=== PATIENT | female | born 1955 | race Asian ===

== ENCOUNTER 2016-10-24 15:15 | Emergency (ER) | payer MEDICAID, OTHER ==
[~2016-10-24] VITALS: Ht 162.6 cm; Wt 68.0 kg
[~2016-10-24 15:15] MED LIST: ASPI-1093 PO; BENZ1TAB10 PO; ENAL5TAB PO; FERR-89 PO; FURO10SO PO; GEMF600T3 PO; GLYB5 PO; INSLAN; LORA-703 PO; METF500T7 PO; MULT1CAP32 PO; PARO10TA89 PO; PIOG15TA13 PO; RANI150T7 PO; RISP3TAB44 PO
[2016-10-24] MEDS ORDERED: SOLI5 PO (16:47)
[2016-10-24] MEDS ORDERED: INSLAN SQ (16:47)
[2016-10-24] MEDS ORDERED: SITA100 PO (16:47)
[2016-10-24] MEDS ORDERED: BECL8.7A6 PUFF (16:47)
[2016-10-24] MEDS ORDERED: ATOR10TA84 PO (16:47)
[2016-10-24] MEDS ORDERED: FLUT220HFA IH (16:47)
[2016-10-24 16:52] LABS: GLUCOSE,POINT OF CARE 215 MG/DL (70-110)
[2016-10-24] MEDS ORDERED: IBUPROFEN 400 MG TABLET PO ONE (18:15)
[2016-10-24 19:21] VITALS: BP 124/77
== END 2016-10-24 19:31 | disposition home or self-care (01) ==
LOC: EMS 15:16
DX: S82.831A Other fracture of upper and lower end of right fibula, initial encounter for closed fracture (principal); E11.9 Type 2 diabetes mellitus without complications; I10 Essential (primary) hypertension; E78.00 Pure hypercholesterolemia, unspecified; K21.9 Gastro-esophageal reflux disease without esophagitis; J45.909 Unspecified asthma, uncomplicated; Z79.4 Long term (current) use of insulin; W10.1XXA Fall (on)(from) sidewalk curb, initial encounter; Y93.89 Activity, other specified; Y92.89 Other specified places as the place of occurrence of the external cause; Y99.8 Other external cause status
CPT/HCPCS: 29515; 82962; 99284

== ENCOUNTER → 2016-12-22 | Outpatient (CLI) | payer OTHER, MEDICAID ==
[~2016-12-22] MED LIST changes: +ATOR10TA84 PO; +BECL8.7A6 PUFF; +FLUT220HFA IH; -FURO10SO PO; -GEMF600T3 PO; -GLYB5 PO; -INSLAN; +INSLAN SQ; +SITA100 PO; +SOLI5 PO
== END | disposition home or self-care (01) ==
LOC: RADPV 14:15
PROVIDERS: ATTEND Physician Assistant
DX: S82.61XD Displaced fracture of lateral malleolus of right fibula, subsequent encounter for closed fracture with routine healing (principal); X58.XXXD Exposure to other specified factors, subsequent encounter

== ENCOUNTER 2017-05-22 08:44 | Inpatient (IN) | payer MEDICAID ==
[~2017-05-22] VITALS: Ht 167.6 cm; Wt 70.3 kg
[2017-05-22] VITALS (14 sets, daily range): BP systolic 153–199; BP diastolic 71–100
[~2017-05-22 08:44] MED LIST changes: +AMLO-512 PO; -ASPI-1093 PO; +ASPI-1188 PO; -BENZ1TAB10 PO; +CEPH500 PO; -ENAL5TAB PO; -FERR-89 PO; -FLUT220HFA IH; -LORA-703 PO; -METF500T7 PO; +METR500 PO; +OS500 PO; -PIOG15TA13 PO; -RANI150T7 PO; -RISP3TAB44 PO; -SITA100 PO; -SOLI5 PO
[2017-05-22] MEDS ORDERED: SITA100 PO (08:53)
[2017-05-22] MEDS ORDERED: ENAL5 PO (08:53)
[2017-05-22] MEDS ORDERED: FERR-89 PO (08:53)
[2017-05-22] MEDS ORDERED: RANI150T7 PO (08:53)
[2017-05-22] MEDS ORDERED: BENZ1TAB10 PO (08:53)
[2017-05-22] MEDS ORDERED: FURO20 PO (08:53)
[2017-05-22] MEDS ORDERED: RISP2 PO (08:53)
[2017-05-22] MEDS ORDERED: LORA10TA7 PO (08:53)
[2017-05-22] MEDS ORDERED: SODIUM CHLORIDE 0.9% 100 ML ONE (08:55)
[2017-05-22] MEDS ORDERED: IOVERSOL 350 MG/ML 100 ML VIAL ONE (08:55)
[2017-05-22] MEDS ORDERED: METF500T4 PO (08:58)
[2017-05-22 09:07] LABS: BASOPHILS % (AUTO) 0.2 % (0.0-2.0); EOSINOPHILS % (AUTO) 4.1 % (1.0-6.0); LYMPHOCYTES # (AUTO) 2.8 K/uL (1.0-4.8); LYMPHOCYTES % (AUTO) 29.6 % (22.0-44.0); MEAN CORPUSCULAR HEMOGLOBIN 30.3 pg (26.0-34.0); MEAN CORPUSCULAR HGB CONC 33.4 G/dL (31.0-37.0); MEAN CORPUSCULAR VOLUME 91 fL (80-100); MONOCYTES # (AUTO) 0.6 K/uL (0.1-1.0); MONOCYTES % (AUTO) 6.5 % (2.0-9.0); NEUTROPHILS # (AUTO) 5.7 K/uL (1.8-7.7); NEUTROPHILS % (AUTO) 59.6 % (40.0-70.0); PLATELET COUNT (AUTO) 491 K/uL (150-450); RED BLOOD CELL COUNT(AUTO) 2.14 MIL/uL (4.00-5.20); RED CELL DISTRIBUTION WIDTH 15.1 % (11.5-14.5); WHITE BLOOD COUNT (AUTO) 9.5 K/uL (4.5-11.0)
[2017-05-22 09:14] LABS: HEMATOCRIT 19.5 % (36-46); HEMOGLOBIN 6.5 g/dL (12.0-16.0)
[2017-05-22 09:21] LABS: PROTHROMBIN TIME 10.7 SEC (9.4-11.6)
[2017-05-22 09:23] LABS: ANION GAP 9 mmol/L (8-16); CALCIUM, TOTAL 9.2 mg/dL (8.8-10.5); CARBON DIOXIDE 23 mmol/L (22-29); CHLORIDE 101 mmol/L (98-107); CREATININE 2.77 mg/dL (0.60-1.30); GLOMERULAR FILTR. RATE CALC 17 mL/min (>60); POTASSIUM 4.8 mmol/L (3.5-5.1); SODIUM SERUM 133 mmol/L (136-145); UREA NITROGEN, BLOOD 26 mg/dL (7-18)
[2017-05-22 09:29] LABS: ALANINE AMINOTRANSFERASE 10 U/L (12-78); ALBUMIN 2.4 g/dL (3.4-5.0); ASPARTATE AMINOTRANSFERASE 15 U/L (15-37); BILIRUBIN,TOTAL 0.2 mg/dL (0.1-1.0); CREATINE KINASE, TOTAL 33 U/L (26-192); TOTAL PROTEIN, SERUM 7.3 g/dL (6.4-8.2)
[2017-05-22 10:01] LABS: APPEARANCE,URINE CLEAR (CLEAR); GLUCOSE, URINE (UA) NEGATIVE (NEGATIVE); KETONES,URINE NEGATIVE (NEGATIVE); LEUKOCYTE ESTERASE ,URINE NEGATIVE (NEGATIVE); OCCULT BLOOD,URINE NEGATIVE (NEGATIVE); PH,URINE 6.5 (5.0-8.0); PROTEIN,URINE POS 1+ (NEGATIVE)
[2017-05-22 10:02] LABS: ADD UA MICROSCOPIC NO
[2017-05-22] MEDS ORDERED: SODIUM CHLORIDE 0.9% 1,000 ML IV ONE (10:37)
[2017-05-22] MEDS ORDERED: 0.9% SODIUM CHLORIDE 10 ML SYRINGE IVP PRN (13:30)
[2017-05-22] MEDS ORDERED: NITROGLYCERIN 2% (1 GM=INCH) PACKET TP ONE (13:30)
[2017-05-22] MEDS ORDERED: ACETAMINOPHEN 325 MG TABLET PO PRN ×2 (13:30→14:30)
[2017-05-22] MEDS ORDERED: ONDANSETRON HCL 4 MG/2 ML VIAL IVP PRN (13:30)
[2017-05-22] MEDS ORDERED: RISP4 PO (14:18)
[2017-05-22] MEDS ORDERED: DEXTROSE 50%-WATER 25 GM/50 ML SYRINGE IVP PRN (14:30)
[2017-05-22] MEDS ORDERED: ALBUTEROL SULFATE 2.5 MG/0.5 ML NEB SOLUTION NEB PRN (14:30)
[2017-05-22] MEDS ORDERED: BISACODYL 10 MG RECTAL RECTAL SUPPOSITORY PR PRN (14:30)
[2017-05-22] MEDS ORDERED: SODIUM CHLORIDE 0.9% 250 ML IV ONE (14:36)
[2017-05-22] MEDS: PANTOPRAZOLE SODIUM 40 MG/VIAL IVP SCH ×2 (14:40→20:18)
[2017-05-22] MEDS ORDERED: INFLUENZA VIRUS VACCINE QVS 2017-18 (3YR+)/PF 60 MCG/0.5 ML SYRINGE IM ONE (16:15)
[2017-05-22] MEDS ORDERED: PNEUMOCOCCAL VACCINE POLYVALENT 0.5 ML VIAL [PPSV23] IM ONE (16:15)
[2017-05-22] MEDS: DOCUSATE SODIUM 100 MG CAPSULE PO SCH (20:16)
[2017-05-22 20:17] LABS: GLUCOSE,POINT OF CARE 112 MG/DL (70-110)
[2017-05-22] MEDS: INSULIN ASPART 100 UNITS/ML SQ PRN (21:23)
[2017-05-23 00:08] VITALS: BP 149/78
[2017-05-23 04:21] VITALS: BP 156/79
[2017-05-23 07:18] LABS: ALBUMIN 2.2 g/dL (3.4-5.0); BILIRUBIN,TOTAL 0.6 mg/dL (0.1-1.0); CALCIUM, TOTAL 8.6 mg/dL (8.8-10.5); CREATININE 2.47 mg/dL (0.60-1.30); POTASSIUM 4.7 mmol/L (3.5-5.1); TOTAL PROTEIN, SERUM 6.8 g/dL (6.4-8.2)
[2017-05-23] MEDS ORDERED: SODIUM CHLORIDE 0.9% 1,000 ML IV ONE (07:54)
[2017-05-23 07:59] VITALS: BP 149/83
[2017-05-23 08:58] LABS: BASOPHILS % (AUTO) 0.6 % (0.0-2.0); EOSINOPHILS % (AUTO) 3.7 % (1.0-6.0); HEMATOCRIT 27.1 % (36-46); HEMOGLOBIN 9.3 g/dL (12.0-16.0); LYMPHOCYTES # (AUTO) 2.7 K/uL (1.0-4.8); LYMPHOCYTES % (AUTO) 32.7 % (22.0-44.0); MEAN CORPUSCULAR HEMOGLOBIN 30.9 pg (26.0-34.0); MEAN CORPUSCULAR HGB CONC 34.2 G/dL (31.0-37.0); MEAN CORPUSCULAR VOLUME 90 fL (80-100); MONOCYTES % (AUTO) 12.4 % (2.0-9.0); NEUTROPHILS # (AUTO) 4.1 K/uL (1.8-7.7); NEUTROPHILS % (AUTO) 50.6 % (40.0-70.0); PLATELET COUNT (AUTO) 448 K/uL (150-450); WHITE BLOOD COUNT (AUTO) 8.2 K/uL (4.5-11.0)
[2017-05-23] MEDS: DOCUSATE SODIUM 100 MG CAPSULE PO SCH ×2 (09:39→20:09)
[2017-05-23 11:46] VITALS: BP 169/76
[2017-05-23] MEDS: INSULIN ASPART 100 UNITS/ML SQ PRN ×2 (12:01→21:37)
[2017-05-23 16:21] VITALS: BP 159/84
[2017-05-23 17:33] LABS: GLUCOSE,POINT OF CARE 102 MG/DL (70-110)
[2017-05-23 20:09] VITALS: BP 133/88
[2017-05-23] MEDS ORDERED: LIDOCAINE HCL/PF 2% 5 ML VIAL IM ONE (21:36)
[2017-05-23] MEDS ORDERED: PROPOFOL 1% 20 ML VIAL IVP ONE (21:36)
[2017-05-24 00:24] VITALS: BP 157/79
[2017-05-24 06:06] VITALS: BP 165/80
[2017-05-24 06:13] LABS: BASOPHILS % (AUTO) 0.6 % (0.0-2.0); EOSINOPHILS % (AUTO) 5.1 % (1.0-6.0); HEMATOCRIT 25.9 % (36-46); HEMOGLOBIN 8.8 g/dL (12.0-16.0); LYMPHOCYTES # (AUTO) 2.5 K/uL (1.0-4.8); LYMPHOCYTES % (AUTO) 27.7 % (22.0-44.0); MEAN CORPUSCULAR HEMOGLOBIN 30.8 pg (26.0-34.0); MEAN CORPUSCULAR VOLUME 91 fL (80-100); MONOCYTES # (AUTO) 1.2 K/uL (0.1-1.0); MONOCYTES % (AUTO) 12.9 % (2.0-9.0); NEUTROPHILS # (AUTO) 4.9 K/uL (1.8-7.7); NEUTROPHILS % (AUTO) 53.7 % (40.0-70.0); PLATELET COUNT (AUTO) 420 K/uL (150-450); RED BLOOD CELL COUNT(AUTO) 2.86 MIL/uL (4.00-5.20); RED CELL DISTRIBUTION WIDTH 14.9 % (11.5-14.5)
[2017-05-24 06:23] LABS: CALCIUM, TOTAL 7.7 mg/dL (8.8-10.5); CREATININE 3.22 mg/dL (0.60-1.30)
[2017-05-24] MEDS: INSULIN ASPART 100 UNITS/ML SQ PRN ×4 (06:24→20:44)
[2017-05-24 07:28] VITALS: BP 159/76
[2017-05-24] MEDS: DOCUSATE SODIUM 100 MG CAPSULE PO SCH ×2 (08:30→20:43)
[2017-05-24] MEDS: PANTOPRAZOLE SODIUM 40 MG/VIAL IVP SCH (08:31)
[2017-05-24 11:52] VITALS: BP 162/91
[2017-05-24] MEDS ORDERED: SODIUM CHLORIDE 0.9% 1,000 ML IV ONE (15:15)
[2017-05-24] MEDS: AmLODIPine BESYLATE 10 MG TABLET PO SCH (15:46)
[2017-05-24 16:43] LABS: GLUCOSE COMMENT 1 Received Meds; GLUCOSE,POINT OF CARE 208 MG/DL (70-110)
[2017-05-24 19:52] VITALS: BP 158/82
[2017-05-25 00:01] VITALS: BP 149/78
[2017-05-25 04:13] VITALS: BP 147/86
[2017-05-25 05:28] LABS: GLUCOSE COMMENT 1 Received Meds; GLUCOSE,POINT OF CARE 219 MG/DL (70-110)
[2017-05-25] MEDS: INSULIN ASPART 100 UNITS/ML SQ PRN ×2 (06:09→12:12)
[2017-05-25 06:29] LABS: BASOPHILS % (AUTO) 0.6 % (0.0-2.0); EOSINOPHILS % (AUTO) 4.3 % (1.0-6.0); HEMATOCRIT 26.8 % (36-46); HEMOGLOBIN 9.1 g/dL (12.0-16.0); LYMPHOCYTES # (AUTO) 2.3 K/uL (1.0-4.8); LYMPHOCYTES % (AUTO) 23.2 % (22.0-44.0); MEAN CORPUSCULAR HEMOGLOBIN 30.9 pg (26.0-34.0); MEAN CORPUSCULAR HGB CONC 34.1 G/dL (31.0-37.0); MEAN CORPUSCULAR VOLUME 91 fL (80-100); MONOCYTES # (AUTO) 1.1 K/uL (0.1-1.0); MONOCYTES % (AUTO) 10.8 % (2.0-9.0); NEUTROPHILS # (AUTO) 6.1 K/uL (1.8-7.7); NEUTROPHILS % (AUTO) 61.1 % (40.0-70.0); PLATELET COUNT (AUTO) 438 K/uL (150-450); RED BLOOD CELL COUNT(AUTO) 2.96 MIL/uL (4.00-5.20); RED CELL DISTRIBUTION WIDTH 14.9 % (11.5-14.5)
[2017-05-25 06:51] LABS: CALCIUM, TOTAL 8.5 mg/dL (8.8-10.5); CREATININE 2.7 mg/dL (0.60-1.30); POTASSIUM 5.3 mmol/L (3.5-5.1)
[2017-05-25 07:18] LABS: GLUCOSE,POINT OF CARE 253 MG/DL (70-110)
[2017-05-25 07:39] VITALS: BP 150/86
[2017-05-25] MEDS: PANTOPRAZOLE SODIUM 40 MG/VIAL IVP SCH (07:52)
[2017-05-25] MEDS: DOCUSATE SODIUM 100 MG CAPSULE PO SCH (07:52)
[2017-05-25] MEDS: AmLODIPine BESYLATE 10 MG TABLET PO SCH (07:52)
[2017-05-25 11:31] VITALS: BP 163/84
[2017-05-25 12:37] LABS: GLUCOSE COMMENT 1 Received Meds; GLUCOSE,POINT OF CARE 295 MG/DL (70-110)
[2017-05-26 09:59] LABS: GLUCOSE COMMENT 1 Received Meds; GLUCOSE,POINT OF CARE 192 MG/DL (70-110)
[2017-05-26 09:59] LABS: GLUCOSE COMMENT 1 Received Meds; GLUCOSE,POINT OF CARE 207 MG/DL (70-110)
[2017-05-29 19:53] LABS: GLUCOSE COMMENT 1 Received Meds; GLUCOSE,POINT OF CARE 227 MG/DL (70-110)
[2017-05-29 19:53] LABS: GLUCOSE COMMENT 1 Received Meds; GLUCOSE,POINT OF CARE 231 MG/DL (70-110)
[2017-05-29 19:53] LABS: GLUCOSE,POINT OF CARE 122 MG/DL (70-110)
[2017-05-29 19:58] LABS: GLUCOSE,POINT OF CARE 207 MG/DL (70-110)
== END 2017-05-25 15:30 | disposition home or self-care (01) | DRG 47 ==
LOC: EMS 08:45 → 5S 13:12
PROVIDERS: ADMIT Internal Medicine; ATTEND Internal Medicine
PROC: 30233N1 Transfusion of Nonautologous Red Blood Cells into Peripheral Vein, Percutaneous Approach (ICD-10-PCS; 2017-05-22)
PROC: 3E0234Z Introduction of Serum, Toxoid and Vaccine into Muscle, Percutaneous Approach (ICD-10-PCS; 2017-05-23)
PROC: 0DB98ZX Excision of Duodenum, Via Natural or Artificial Opening Endoscopic, Diagnostic (ICD-10-PCS; principal; 2017-05-23 08:00)
DX: G45.9 Transient cerebral ischemic attack, unspecified (principal); G93.40 Encephalopathy, unspecified; N17.9 Acute kidney failure, unspecified; K29.71 Gastritis, unspecified, with bleeding; E44.0 Moderate protein-calorie malnutrition; E11.22 Type 2 diabetes mellitus with diabetic chronic kidney disease; E11.65 Type 2 diabetes mellitus with hyperglycemia; D63.8 Anemia in other chronic diseases classified elsewhere; E78.00 Pure hypercholesterolemia, unspecified; F41.9 Anxiety disorder, unspecified; G51.0 Bell's palsy; F29 Unspecified psychosis not due to a substance or known physiological condition; I12.9 Hypertensive chronic kidney disease with stage 1 through stage 4 chronic kidney disease, or unspecified chronic kidney disease; J45.909 Unspecified asthma, uncomplicated; K21.9 Gastro-esophageal reflux disease without esophagitis; N18.9 Chronic kidney disease, unspecified; Z79.4 Long term (current) use of insulin; Z86.73 Personal history of transient ischemic attack (TIA), and cerebral infarction without residual deficits; Z79.82 Long term (current) use of aspirin; Z79.899 Other long term (current) drug therapy; Z23 Encounter for immunization
CPT/HCPCS: 70496; 70551; 82270; 82271; 82962; 86850; 86900; 86901; 86920; 88305; 88312; 90471; 93005; 99291; C9113; J2704; J3490; J7030; J7050; P9016

== ENCOUNTER → 2017-10-06 | Outpatient (CLI) | payer OTHER, MEDICAID ==
[~2017-10-06] MED LIST changes: -AMLO-512 PO; -CEPH500 PO; +FERR-89 PO; -INSLAN SQ; -METR500 PO; -PARO10TA89 PO; +SITA100 PO
== END | disposition home or self-care (01) ==
LOC: RADPV 12:44
PROVIDERS: ATTEND Internal Medicine Nephrology
DX: N18.4 Chronic kidney disease, stage 4 (severe) (principal)
CPT/HCPCS: 76770

== ENCOUNTER → 2018-04-06 | Outpatient (CLI) | payer OTHER, MEDICAID | END | disposition home or self-care (01) | LOC: RADPV 10:50 | PROVIDERS: ATTEND Physician Assistant | DX: I70.0 Atherosclerosis of aorta (principal); R76.11 Nonspecific reaction to tuberculin skin test without active tuberculosis; J45.909 Unspecified asthma, uncomplicated; I10 Essential (primary) hypertension; E11.9 Type 2 diabetes mellitus without complications ==

== ENCOUNTER → 2018-05-24 | Outpatient (CLI) | payer MEDICARE, MEDICAID | END | disposition home or self-care (01) | LOC: RADPV 14:39 | PROVIDERS: ATTEND Physician Assistant | DX: I70.0 Atherosclerosis of aorta (principal); R76.11 Nonspecific reaction to tuberculin skin test without active tuberculosis; I10 Essential (primary) hypertension; J45.909 Unspecified asthma, uncomplicated ==

== ENCOUNTER 2018-10-26 20:40 | Emergency (ER) | payer MEDICARE, MEDICAID ==
[~2018-10-26] VITALS: Ht 157.5 cm; Wt 75.0 kg
[2018-10-26 21:54] LABS: GLUCOSE,POINT OF CARE 218 MG/DL (70-110)
[2018-10-26 22:08] LABS: BASOPHILS % (AUTO) 0.5 % (0.0-2.0); EOSINOPHILS % (AUTO) 2.1 % (1.0-6.0); HEMATOCRIT 25.3 % (36-46); HEMOGLOBIN 8.5 g/dL (12.0-16.0); LYMPHOCYTES # (AUTO) 1.8 K/uL (1.0-4.8); LYMPHOCYTES % (AUTO) 18.2 % (22.0-44.0); MEAN CORPUSCULAR HEMOGLOBIN 31.2 pg (26.0-34.0); MEAN CORPUSCULAR HGB CONC 33.7 G/dL (31.0-37.0); MEAN CORPUSCULAR VOLUME 93 fL (80-100); MONOCYTES # (AUTO) 1.1 K/uL (0.1-1.0); MONOCYTES % (AUTO) 11.6 % (2.0-9.0); NEUTROPHILS # (AUTO) 6.6 K/uL (1.8-7.7); NEUTROPHILS % (AUTO) 67.6 % (40.0-70.0); PLATELET COUNT (AUTO) 259 K/uL (150-450); RED BLOOD CELL COUNT(AUTO) 2.73 MIL/uL (4.00-5.20); RED CELL DISTRIBUTION WIDTH 13.7 % (11.5-14.5)
[2018-10-26 22:26] LABS: CALCIUM, TOTAL 8.6 mg/dL (8.8-10.5); CREATININE 5.35 mg/dL (0.60-1.30); POTASSIUM 4.5 mmol/L (3.5-5.1)
[2018-10-26 22:35] LABS: ALBUMIN 2.7 g/dL (3.4-5.0); BILIRUBIN,TOTAL 0.3 mg/dL (0.1-1.0); TOTAL PROTEIN, SERUM 7.4 g/dL (6.4-8.2)
[2018-10-26] MEDS ORDERED: INSU100I26 SQ (23:22)
[2018-10-26] MEDS ORDERED: RISP2 PO (23:22)
[2018-10-26] MEDS ORDERED: ENAL5TAB PO (23:22)
[2018-10-26] MEDS ORDERED: LORA10TA7 PO (23:22)
[2018-10-26] MEDS ORDERED: PIOG15TA6 PO (23:22)
[2018-10-26] MEDS ORDERED: RANI300C PO (23:22)
[2018-10-26] MEDS ORDERED: PARO20TA24 PO (23:22)
[2018-10-26] MEDS ORDERED: RISP4 PO (23:22)
[2018-10-26] MEDS ORDERED: OMEP20 PO (23:22)
[2018-10-26] MEDS ORDERED: FURO40 PO (23:22)
[2018-10-26] MEDS ORDERED: BENZ1TAB10 PO (23:22)
[2018-10-26] MEDS ORDERED: DOCU-275 PO (23:22)
[2018-10-26] MEDS ORDERED: SITA25 PO (23:22)
[2018-10-26] MEDS ORDERED: ATOR40TA28 PO (23:22)
[2018-10-26] MEDS ORDERED: SOLI5 PO (23:22)
[2018-10-26 23:34] LABS: APPEARANCE,URINE CLEAR (CLEAR); BILIRUBIN,URINE NEGATIVE (NEGATIVE); GLUCOSE, URINE (UA) 100 mg/dL (NEGATIVE); KETONES,URINE NEGATIVE (NEGATIVE); LEUKOCYTE ESTERASE ,URINE SMALL (NEGATIVE); NITRATE,URINE NEGATIVE (NEGATIVE); OCCULT BLOOD,URINE TRACE (NEGATIVE); PROTEIN,URINE SEE CONFIRM (NEGATIVE); UROBILINOGEN,URINE 0.2 mg/dL (<=1.0)
[2018-10-26 23:46] LABS: BACTERIA,URINE Rare /HPF (None Seen); FINE GRANULAR CASTS,URINE 0-2 /LPF (None Seen); HYALINE CASTS, URINE 0-2 /LPF (None Seen); RBC,URINE 0-2 /HPF (0-2); SQUAMOUS EPITHELIAL CELL,UR Rare /LPF (None Seen)
[2018-10-26 23:47] LABS: SULFOSALICYLIC ACID,URINE 1+ (Negative)
[2018-10-27] MEDS ORDERED: SODIUM CHLORIDE 0.9% 1,000 ML IV ONE (01:15)
[2018-10-27 02:54] VITALS: BP 152/62
== END 2018-10-27 02:55 | disposition home or self-care (01) ==
LOC: EMS 20:42
DX: E87.1 Hypo-osmolality and hyponatremia (principal); I12.9 Hypertensive chronic kidney disease with stage 1 through stage 4 chronic kidney disease, or unspecified chronic kidney disease; E11.22 Type 2 diabetes mellitus with diabetic chronic kidney disease; N18.9 Chronic kidney disease, unspecified; K21.9 Gastro-esophageal reflux disease without esophagitis; J45.909 Unspecified asthma, uncomplicated; F41.9 Anxiety disorder, unspecified; E78.00 Pure hypercholesterolemia, unspecified; Z79.4 Long term (current) use of insulin; Z79.82 Long term (current) use of aspirin; Z79.899 Other long term (current) drug therapy
CPT/HCPCS: 93005

== ENCOUNTER → 2018-10-28 | Outpatient (CLI) | payer MEDICARE, MEDICAID ==
[~2018-10-28] MED LIST changes: -ATOR10TA84 PO; +ATOR40TA28 PO; +BENZ1TAB10 PO; +DOCU-275 PO; +ENAL5TAB PO; +FURO40 PO; +INSU100I26 SQ; +LORA10TA7 PO; +OMEP20 PO; +PARO20TA24 PO; +PIOG15TA6 PO; +RANI300C PO; +RISP2 PO; +RISP4 PO; -SITA100 PO; +SITA25 PO; +SOLI5 PO
== END | disposition home or self-care (01) ==
LOC: RADPV 14:13
PROVIDERS: ATTEND Internal Medicine Nephrology
DX: I12.9 Hypertensive chronic kidney disease with stage 1 through stage 4 chronic kidney disease, or unspecified chronic kidney disease (principal); E11.22 Type 2 diabetes mellitus with diabetic chronic kidney disease; N18.5 Chronic kidney disease, stage 5